=== PATIENT | male | born 1960 | race Caucasian/White ===

== ENCOUNTER 2021-08-10 13:07 | Emergency (ER) | payer SELFPAY ==
[~2021-08-10] VITALS: Ht 170.2 cm; Wt 74.8 kg
[2021-08-10 14:01] VITALS: BP 142/80
--- NOTE | 2021-08-10 15:00 | NUR ---
PATIENT CALLED BY KATHERINE [place], NO ANSWER
--- NOTE | 2021-08-10 15:20 | NUR ---
No answer in lobby or outside in tent. Attempted to call patient via phone however no number on file.
== END 2021-08-10 15:20 | disposition left against medical advice (07) ==
LOC: MED 13:07
DX: L02.31 Cutaneous abscess of buttock (principal); Z53.21 Procedure and treatment not carried out due to patient leaving prior to being seen by health care provider

== ENCOUNTER 2021-08-12 12:46 | Emergency (ER) | payer SELFPAY ==
[~2021-08-12] VITALS: Ht 172.7 cm; Wt 73.5 kg
[2021-08-12 12:55] VITALS: BP 134/73
--- NOTE | 2021-08-12 13:05 | NUR ---
Juan bethea in [facility] - 08/12/21 at 1305 by [email or web address] RAE
--- NOTE | 2021-08-12 13:06 | NUR ---
PT AMB TO BED 7.
--- NOTE | 2021-08-12 13:25 | NUR ---
PT CHANGED IN TO GAWN AND IN BED. PT ON MONITOR.
--- NOTE | 2021-08-12 13:48 | NUR ---
60 Y/O M C/O PAIN 9/10 R UPPER BUTTOCKS ABSCESS. PAIN ON AND OFF FOR 2 MONTHS. PT ACCU CHECK WAS 573 UPPON ARRIVAL. PT DID METH THIS MORNING. PMH: DM
--- NOTE | 2021-08-12 14:23 | NUR ---
DR PATEL AT BEDSIDE.
[2021-08-12] MEDS ORDERED: NACL 0.9% 1,000 ML IV ONE (14:25)
[2021-08-12] MEDS ORDERED: CEFEPIME 2,000 MG in DEXTROSE 5% 100 ML IV ONE (14:25)
[2021-08-12] MEDS ORDERED: VANCOMYCIN 1,000 MG in DEXTROSE 5% 250 ML IV ONE (14:25)
[2021-08-12 14:30] VITALS: BP 96/54
[2021-08-12] MEDS ORDERED: AMOX-1000 PO (14:36)
--- NOTE | 2021-08-12 14:46 | NUR ---
Patient discharged with v/s stable. Written and verbal after care instructions given and explained. Patient alert, oriented and verbalized understanding of instructions. Ambulatory with steady gait. All questions addressed prior to discharge. ID band removed. Patient advised to follow up with PMD. Rx of AMOXICILLIN/POTASSIUM given. Opportunity to ask questions provided and answered. PT LEFT AGAINST MEDICAL ADVICE, DR PATEL GAVE PT ANIBIOTIC PRISCRIPTION.
== END 2021-08-12 14:44 | disposition home or self-care (01) ==
LOC: MED 12:46
DX: L02.31 Cutaneous abscess of buttock (principal); F17.200 Nicotine dependence, unspecified, uncomplicated; F14.90 Cocaine use, unspecified, uncomplicated; F15.20 Other stimulant dependence, uncomplicated; Z79.899 Other long term (current) drug therapy; Z59.00 Homelessness unspecified
CPT/HCPCS: 99283

== ENCOUNTER 2021-08-18 12:44 | Emergency (ER) | payer SELFPAY ==
[~2021-08-18] VITALS: Ht 172.7 cm; Wt 83.9 kg
[~2021-08-18 12:44] MED LIST: AMOX-1000 PO
[2021-08-18 12:48] VITALS: BP 143/82
[2021-08-18] MEDS ORDERED: LIDOCAINE MPF 1% 10 MG/ML VIAL INJ ONE (14:05)
[2021-08-18] MEDS ORDERED: HYDROcodone/APAP 5/325 MG 1 TAB TAB PO ONE (14:05)
[2021-08-18] MEDS: LIDOCAINE MPF 1% 10 MG/ML VIAL INJ ONE (14:05)
--- NOTE | 2021-08-18 15:20 | NUR ---
TO ER BED 6
--- NOTE | 2021-08-18 15:25 | NUR ---
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 Abscess on his back and one on his left upper arm. Back appears reddened and tender to touch at this time. Pmhx: Broken femur, hep c Allergies: Denies Med: Denies
--- NOTE | 2021-08-18 15:30 | NUR ---
KATHERINE Latif at bedside to perform procedure. All supplies at bedside.
[2021-08-18] MEDS ORDERED: LIDOCAINE MPF 1% 5 ML ONE (15:34)
[2021-08-18] MEDS ORDERED: LIDOCAINE MPF 1% 10 ML ONE (15:35)
[2021-08-18] MEDS ORDERED: SULF-59 PO (15:58)
[2021-08-18] MEDS ORDERED: NAPR-54 PO (15:58)
[2021-08-18] MEDS ORDERED: CEPH500C16 PO (15:58)
[2021-08-18] MEDS ORDERED: HYDROcodone/APAP 5/325 MG 1 TAB TAB ONE (16:11)
--- NOTE | 2021-08-18 16:17 | NUR ---
PT GIVEN CRUTCHES THAT WERE ADJUSTED TO PT"S SIZE AND HEIGHT, PT STATES THAT THEY KNOW HOW TO USE CRUTCHES ALREADY AND SHOWED PROPER DEMENSTRATION ON HOW TO USE CRUTCHES. PT HAD NO FURTHER QUESTIONS, RN NOTIFIED.
--- NOTE | 2021-08-18 16:30 | NUR ---
Move to Chair D at this time
[2021-08-18 16:40] VITALS: BP 131/79
--- NOTE | 2021-08-18 16:40 | NUR ---
Patient discharged with v/s stable. Written and verbal after care instructions given and explained with teach back. Patient alert, oriented and verbalized understanding of instructions. Ambulatory with steady gait. All questions addressed prior to discharge. ID band removed. Patient advised to follow up with PMD. Rx of keflex/naprosyn/bactrim ds given. Patient educated on indication of medication including possible reaction and side effects. Opportunity to ask questions provided and answered.
== END 2021-08-18 16:40 | disposition home or self-care (01) ==
LOC: MED 12:44
DX: L02.31 Cutaneous abscess of buttock (principal); L02.414 Cutaneous abscess of left upper limb; F17.210 Nicotine dependence, cigarettes, uncomplicated; F12.10 Cannabis abuse, uncomplicated
CPT/HCPCS: 10060; 99284; J2001